=== PATIENT | female | born 1975 | race American Indian/Alaskan Native ===

== ENCOUNTER 2016-08-08 05:59 | Emergency (ER) | payer BC ==
[2016-08-08] MEDS ORDERED: ASPIRIN PO ONE (06:29)
[2016-08-08 07:17] LABS: Basophils % (Auto) 0.4 % (0.0-1.8); Hematocrit 37.2 % (30.3-42.9); Mean Corpuscular HGB Conc 32 % (30-34); Mean Corpuscular Volume 80 fl (79-97); Platelet Count 199 K/mm3 (140-440); Red Blood Count 4.68 M/mm3 (3.65-5.03); Red Cell Distribution Width 14.2 % (13.2-15.2); White Blood Count 5.2 K/mm3 (4.5-11.0)
[2016-08-08 07:30] LABS: Mean Corpuscular Hemoglobin 26 pg (28-32)
[2016-08-08 07:33] LABS: Blood Urea Nitrogen 6 mg/dL (7-17); Calcium 8.5 mg/dL (8.4-10.2); Carbon Dioxide 23 mmol/L (22-30); Glucose 102 mg/dL (65-100)
[2016-08-08 07:34] LABS: Anion Gap 18 mmol/L; Chloride 104.4 mmol/L (98-107); Potassium 3.9 mmol/L (3.6-5.0); Sodium 141 mmol/L (137-145)
--- NOTE | 2016-08-11 18:17 | ED Elopement Review ---
ED Pt Elopement review - Results review Lab results: Laboratory Tests 08/08/16 08/08/16 06:57 06:57 WBC 5.2 RBC 4.68 Hgb 12.0 Hct 37.2 MCV 80 MCH 26 L MCHC 32 RDW 14.2 Plt Count 199 Lymph % (Auto) 51.2 H Bremer % (Auto) 7.1 Eos % (Auto) 3.0 Baso % (Auto) 0.4 Lymph # 2.6 Bremer # 0.4 Eos # 0.2 Baso # 0.0 Seg Neutrophils % 38.3 L Seg Neutrophils # 2.0 Sodium 141 Potassium 3.9 Chloride 104.4 Carbon Dioxide 23 Anion Gap 18 BUN 6 L Creatinine 0.6 L Estimated GFR > 60 BUN/Creatinine Ratio 10.00 Glucose 102 H Calcium 8.5 Troponin T < 0.010 - Call Back decision Pt Call Back Decision: No action required
== END 2016-08-08 14:25 | disposition left against medical advice (07) ==
LOC: ED 05:59
DX: R07.9 Chest pain, unspecified (principal); Z53.21 Procedure and treatment not carried out due to patient leaving prior to being seen by health care provider
CPT/HCPCS: 36415; 80048; 84484; 85025; 93005; 93010

== ENCOUNTER 2017-02-28 05:02 | Emergency (ER) | payer BC, OTHER ==
[2017-02-28] MEDS ORDERED: TYLENOL PO ONE (05:07)
[2017-02-28] MEDS ORDERED: TYLENOL ONE (05:11)
[2017-02-28 05:15] VITALS: BP 141/76
--- NOTE | 2017-02-28 07:34 | Emergency Department Report ---
Upper Extremity - HPI Chief Complaint: Extremity Injury, Upper Stated Complaint: LEFT HAND INJURY Time Seen by Provider: 02/28/17 07:29 Upper Extremity: Left Hand (pain and swelling after injury) Occurred When: Today Mechanism: Crush Severity: moderate (5/10) Symptoms: Yes Pain with Movement (left hand), Yes Swelling (Dorsal of left), No Deformity, No Limited Range of Movement (pain with movement), No Numbness, No Weakness, No Bruising/Ecchymosis, No Laceration or Abrasion Other History: Patient here reports that she hurt her hand at work this morning. Sge said her hand got caight between objects. Pain 5/10. Denies numbness or tingling. denies loss of sensation. Pain worst with movement and better rest. Pain throbbing to hand. denies pain fingers. ED Review of Systems ROS: Stated complaint: LEFT HAND INJURY Other details as noted in HPI Comment: All other systems reviewed and negative Constitutional: no symptoms reported Respiratory: no symptoms reported Cardiovascular: denies: chest pain, palpitations, dyspnea on exertion, edema, syncope Gastrointestinal: abdominal pain. denies: nausea, vomiting Musculoskeletal: joint swelling, arthralgia. denies: back pain, myalgia Skin: denies: rash Neurological: denies: headache, weakness, numbness, paresthesias, confusion, abnormal gait, vertigo ED Past Medical Hx - Past Medical History Previous Medical History?: Yes Hx Diabetes: Yes Additional medical history: anemia - Surgical History Past Surgical History?: Yes Additional Surgical History: partial hysterectomy. x 3 - Family History Family history: hypertension () - Social History Smoking Status: Never Smoker Substance Use Type: None Other Social History: . - Medications Home Medications: Home Medications Medication Instructions Recorded Confirmed Last Taken Type HYDROcodone/APAP 5-325 [[place] 1 each PO Q6HR PRN #20 tablet 11/18/14 Unknown Rx 5/325] metFORMIN [Glucophage] 500 mg PO BID 11/18/14 11/18/14 11/18/14 History Acetaminophen/Codeine [Tylenol 1 tab PO Q6H PRN #12 tab 02/28/17 Unknown Rx /Codeine # 3 tab] Ibuprofen [Motrin 600 MG tab] 600 mg PO Q8H PRN #12 tablet 02/28/17 Unknown Rx Upper Extremity Exam - Exam General: Vital signs noted. No distress. Alert and acting appropriately. A 42-year-old female well-nourished well-developed in no acute distress Head and Torso: No HEENT Abnormality, No Neck Tenderness, No Chest/Lungs Abnormality, No Abdominal Tenderness, No Back Tenderness Shoulder Exam: Yes Normal Range of Motion in Shoulder, No Shoulder Deformity, No AC Joint Tenderness Arm Exam: No Arm/Humerus Tenderness, No Arm Deformity Elbow: Yes Normal Range of Motion in Elbow, No Elbow Tenderness, No Elbow Deformity Forearm: No Forearm Tenderness, No Forearm Deformity, No Pain with Pronation, No Pain with Supination Wrist: Yes Normal ROM in Wrist, No Wrist Tenderness, No Wrist Deformity, No Snuffbox Tenderness, No Pain with Axial Thumb Compression Hand: Yes Hand Tenderness ( dorsal aspect of left hand), Yes Normal ROM in Digit (s) (patient with full active range of motion but she reports pain with movement to her left hand), No Hand Deformity (swelling to left dorsal aspect of hand), No Digit Tenderness, No Digit(s) Deformity, No Tendon Dysfunction CMS Exam: Yes Normal Distal Pulses, Yes Normal Capillary Refill, Yes Normal Distal Sensation, No Broken Skin ED Course Vital Signs 02/28/17 05:08 Temperature 97.6 F Pulse Rate 73 Respiratory 16 Rate Blood Pressure 141/76 [Right] O2 Sat by Pulse 99 Oximetry - Reevaluation(s) Reevaluation #1: 02/28/17 08:24 02/28/17 08:26 patient stable throughout ED stay . He was given Tylenol 650 mg in triage which did not relieve her pain and then given Toradol 60 mg IM. Procedure note for splint in detail - Orthopedic Splinting/Casting Injury #1 Side: left Upper Extremity Injury Location: hand Upper Extremity Immobilizer: thumb spica Additional Comments: Patient with good neurological sratus past splint placement ED Medical Decision Making - Radiology Data Radiology results: report reviewed X-ray of left hand reveal no fracture or dislocation. - Medical Decision Making She reports that she injured her left hand at work this morning in while trying to open boxes. She said her head left hand got caught and she thinks it's broken. X-ray report reveals no osseous abnormality. Patient with swelling to left hand that is tender to palpate but she has full range of motion and no signs of tendon injury. I discussed the patient that she is a contusion on the bone and that she should rest, ice, compress and elevate affected area. Velcro hand splint placed. She was understanding and decision suction and treatment plan. Patient was given Toradol 60 mg IM in emergency room for pain and prior to Toradol in triage area she was given Tylenol 650mg po. Patient instructed to follow up with orthopedic doctor if her hand does not get better in 3 days and/or to return to emergency room at worsening pain and swelling with numbness and loss of sensation to left hand. Patient discharged home with prescriptions for Motrin and Tylenol 3. Critical care attestation.: If time is entered above; I have spent that time in minutes in the direct care of this critically ill patient, excluding procedure time. ED Disposition Clinical Impression: Contusion of left hand, initial encounter, Arthralgia of hand, left Injury of left hand Qualifiers: Encounter type: initial encounter Qualified Code(s): S69.92XA - Unspecified injury of left wrist, hand and finger(s), initial encounter Disposition: TO HOME OR SELFCARE Is pt being admited?: No Does the pt Need Aspirin: No Condition: Stable Instructions: Contusion in Adults (ED), Arthralgia (ED), RICE Therapy (ED) Additional Instructions: Please follow up with primary care as recommended Increase fluid intake Take medication as prescribed .. Rhese follow-up with orthopedic doctor fidencio. Please keep affected area clean and dry Is not drive or operate heavy machinery while taking Tylenol No. 3 as this medication causes drowsiness Prescriptions: Acetaminophen/Codeine [Tylenol /Codeine # 3 tab] 1 tab PO Q6H PRN #12 tab PRN Reason: Pain, Moderate (4-6) Ibuprofen [Motrin 600 MG tab] 600 mg PO Q8H PRN #12 tablet PRN Reason: Pain Referrals: PRIMARY CARE, [Primary Care Provider] - 3-5 Days Forms: Accompanied Note, Work/School Release Form(ED)
[2017-02-28] MEDS ORDERED: TORADOL IM ONE (07:50)
--- NOTE | 2017-02-28 07:50 | XRay Report ---
LEFT HAND, 3 views: History: Left hand pain. The bony architecture is intact. Bony alignment is normal. No soft tissue abnormalities are seen. The joint spaces appear preserved. IMPRESSION: Normal left hand.
== END 2017-02-28 08:46 | disposition home or self-care (01) ==
LOC: ED 05:02
DX: S60.222A Contusion of left hand, initial encounter (principal); E11.9 Type 2 diabetes mellitus without complications; X58.XXXA Exposure to other specified factors, initial encounter; Y93.89 Activity, other specified; Y92.89 Other specified places as the place of occurrence of the external cause; Y99.8 Other external cause status
CPT/HCPCS: 29125; 73130; 96372; 99283; J1885